=== PATIENT | female | born 1980 ===

== ENCOUNTER 2018-03-21 03:00 | Inpatient (IN) | payer MEDICAID ==
[~2018-03-21] VITALS: Ht 165.1 cm; Wt 93.4 kg
[~2018-03-21 03:00] MED LIST: QUET25TA PO; SERT50TA12 PO
[2018-03-21] MEDS ORDERED: DIVA250T45 PO (03:16)
[2018-03-21 03:31] LABS: BASOPHILS % (AUTO) 0.8 % (0.0-2.0); EOSINOPHILS % (AUTO) 1.5 % (1.0-6.0); HEMATOCRIT 38.8 % (36-46); LYMPHOCYTES # (AUTO) 2.6 K/uL (1.0-4.8); LYMPHOCYTES % (AUTO) 25.9 % (22.0-44.0); MEAN CORPUSCULAR HEMOGLOBIN 28.2 pg (26.0-34.0); MEAN CORPUSCULAR HGB CONC 33.6 G/dL (31.0-37.0); MEAN CORPUSCULAR VOLUME 84 fL (80-100); MONOCYTES # (AUTO) 0.5 K/uL (0.1-1.0); MONOCYTES % (AUTO) 4.9 % (2.0-9.0); NEUTROPHILS # (AUTO) 6.6 K/uL (1.8-7.7); NEUTROPHILS % (AUTO) 66.9 % (40.0-70.0); PLATELET COUNT (AUTO) 303 K/uL (150-450); RED BLOOD CELL COUNT(AUTO) 4.61 MIL/uL (4.00-5.20); RED CELL DISTRIBUTION WIDTH 14.3 % (11.5-14.5)
[2018-03-21 03:43] LABS: ALANINE AMINOTRANSFERASE 24 U/L (12-78); ALBUMIN 3.2 g/dL (3.4-5.0); ALKALINE PHOSPHATASE 103 U/L (46-116); ANION GAP 10 mmol/L (8-16); ASPARTATE AMINOTRANSFERASE 14 U/L (15-37); BILIRUBIN,TOTAL 0.4 mg/dL (0.1-1.0); CALCIUM, TOTAL 8.8 mg/dL (8.8-10.5); CARBON DIOXIDE 27 mmol/L (22-29); CHLORIDE 101 mmol/L (98-107); CREATININE 0.97 mg/dL (0.60-1.30); GLOMERULAR FILTR. RATE CALC > 60 mL/min (>60); GLUCOSE,RANDOM 127 mg/dL (70-110); SODIUM SERUM 138 mmol/L (136-145); TOTAL PROTEIN, SERUM 7.5 g/dL (6.4-8.2); UREA NITROGEN, BLOOD 6 mg/dL (7-18)
[2018-03-21 03:47] LABS: POTASSIUM 2.9 mmol/L (3.5-5.1)
[2018-03-21 03:55] LABS: SALICYLATE 3.3 mg/dL (2.8-20.0)
[2018-03-21 03:58] LABS: ACETAMINOPHEN < 2 mcg/mL (10-30)
[2018-03-21 04:24] LABS: VALPROIC ACID 11 mcg/mL (50-100)
[2018-03-21] MEDS ORDERED: ACETAMINOPHEN 325 MG TABLET PO PRN (04:45)
[2018-03-21] MEDS ORDERED: 0.9% SODIUM CHLORIDE 10 ML SYRINGE IVP PRN ×2 (04:45→08:30)
[2018-03-21] MEDS ORDERED: ONDANSETRON HCL 4 MG/2 ML VIAL IVP PRN ×2 (04:45→08:30)
[2018-03-21 04:54] LABS: AMPHET/METH SCREEN,URINE POSITIVE (NEGATIVE); BARBITURATE SCREEN, URINE NEGATIVE (NEGATIVE); BENZODIAZEPINES SCREEN,URINE NEGATIVE (NEGATIVE); CANNABINOID SCREEN,URINE NEGATIVE (NEGATIVE); COCAINE SCREEN,URINE NEGATIVE (NEGATIVE); METHADONE SCREEN, URINE NEGATIVE (NEGATIVE); OPIATE SCREEN,URINE NEGATIVE (NEGATIVE); PHENCYCLIDINE SCREEN,URINE NEGATIVE (NEGATIVE)
[2018-03-21] MEDS ORDERED: SODIUM CHLORIDE 0.9% 1,000 ML IV ONE (05:10)
[2018-03-21] MEDS: POTASSIUM CHL 10 MEQ/WATER 50 ML IV SCH ×2 (05:13→06:12)
[2018-03-21] MEDS ORDERED: POTASSIUM CHL 10 MEQ/WATER 50 ML IV PRN (08:30)
[2018-03-21] MEDS ORDERED: MAGNESIUM OXIDE 400 MG TABLET PO PRN (08:30)
[2018-03-21] MEDS ORDERED: POTASSIUM CHLORIDE 20 MEQ ER TABLET PO PRN (08:30)
[2018-03-21] MEDS ORDERED: MAGNESIUM SULFATE 2 GM/WATER 50 ML IV PRN (08:30)
[2018-03-21] MEDS ORDERED: MAGNESIUM SULFATE 4 GM/WATER 100 ML IV PRN (08:30)
[2018-03-21] MEDS: QUEtiapine FUMARATE 25 MG TABLET PO SCH (09:00)
[2018-03-21] MEDS: SERTRALINE HCL 50 MG TABLET PO SCH (09:00)
[2018-03-21 09:02] VITALS: BP 130/83
[2018-03-21] MEDS: MAGNESIUM SULFATE 2 GM, MVI, ADULT NO.1 WITH VIT K 10 ML, THIAMINE HCL 100 MG, FOLIC AC... IV SCH ×5 (10:52)
[2018-03-21] MEDS: DOCUSATE SODIUM 100 MG CAPSULE PO SCH ×2 (10:52→20:25)
[2018-03-21] MEDS: PANTOPRAZOLE SODIUM 40 MG/VIAL IVP SCH (10:52)
[2018-03-21 11:09] VITALS: BP 112/64
[2018-03-21 14:38] LABS: MAGNESIUM 2.1 mg/dL (1.80-2.40); POTASSIUM 4.2 mmol/L (3.5-5.1)
[2018-03-21 15:15] VITALS: BP 112/71
[2018-03-21 19:38] VITALS: BP 127/81
[2018-03-21] MEDS: DIVALPROEX SODIUM 250 MG ER TABLET PO SCH ×2 (20:25→21:00)
[2018-03-22] VITALS (7 sets, daily range): BP systolic 123–156; BP diastolic 77–97
[2018-03-22] MEDS: MAGNESIUM SULFATE 2 GM, MVI, ADULT NO.1 WITH VIT K 10 ML, THIAMINE HCL 100 MG, FOLIC AC... IV SCH ×10 (00:31→17:02)
[2018-03-22 04:47] LABS: BASOPHILS % (AUTO) 0.8 % (0.0-2.0); EOSINOPHILS % (AUTO) 2.8 % (1.0-6.0); HEMATOCRIT 36.4 % (36-46); HEMOGLOBIN 12.3 g/dL (12.0-16.0); LYMPHOCYTES # (AUTO) 3.5 K/uL (1.0-4.8); LYMPHOCYTES % (AUTO) 38.2 % (22.0-44.0); MEAN CORPUSCULAR HEMOGLOBIN 28.8 pg (26.0-34.0); MEAN CORPUSCULAR HGB CONC 33.8 G/dL (31.0-37.0); MEAN CORPUSCULAR VOLUME 85 fL (80-100); MONOCYTES # (AUTO) 0.4 K/uL (0.1-1.0); MONOCYTES % (AUTO) 4.5 % (2.0-9.0); NEUTROPHILS % (AUTO) 53.7 % (40.0-70.0); PLATELET COUNT (AUTO) 258 K/uL (150-450); RED BLOOD CELL COUNT(AUTO) 4.27 MIL/uL (4.00-5.20); RED CELL DISTRIBUTION WIDTH 14.3 % (11.5-14.5)
[2018-03-22 05:02] LABS: ANION GAP 4 mmol/L (8-16); CALCIUM, TOTAL 8.1 mg/dL (8.8-10.5); CARBON DIOXIDE 29 mmol/L (22-29); CHLORIDE 109 mmol/L (98-107); CREATININE 0.87 mg/dL (0.60-1.30); GLOMERULAR FILTR. RATE CALC > 60 mL/min (>60); GLUCOSE,RANDOM 86 mg/dL (70-110); POTASSIUM 4.3 mmol/L (3.5-5.1); SODIUM SERUM 142 mmol/L (136-145); UREA NITROGEN, BLOOD 9 mg/dL (7-18); VALPROIC ACID 72 mcg/mL (50-100)
[2018-03-22] MEDS: QUEtiapine FUMARATE 25 MG TABLET PO SCH (07:19)
[2018-03-22] MEDS: SERTRALINE HCL 50 MG TABLET PO SCH (09:07)
[2018-03-22] MEDS: PANTOPRAZOLE SODIUM 40 MG/VIAL IVP SCH (09:07)
[2018-03-22] MEDS: DOCUSATE SODIUM 100 MG CAPSULE PO SCH ×2 (09:07→20:29)
[2018-03-22] MEDS ORDERED: DIVALPROEX SODIUM 500 MG ER TABLET PO SCH (21:00)
[2018-03-23 04:11] VITALS: BP 143/96
[2018-03-23 07:21] VITALS: BP 140/90
[2018-03-23] MEDS: PANTOPRAZOLE SODIUM 40 MG/VIAL IVP SCH (08:23)
[2018-03-23] MEDS: SERTRALINE HCL 50 MG TABLET PO SCH (08:23)
[2018-03-23] MEDS: DOCUSATE SODIUM 100 MG CAPSULE PO SCH ×2 (08:23→20:41)
[2018-03-23 12:00] VITALS: BP 127/73
[2018-03-23 16:03] VITALS: BP 124/75
[2018-03-23 19:34] VITALS: BP 138/80
[2018-03-23] MEDS: SERTRALINE HCL 100 MG TABLET PO SCH (20:41)
[2018-03-24 00:11] VITALS: BP 129/76
[2018-03-24 04:57] VITALS: BP 135/68
[2018-03-24 07:48] VITALS: BP 122/74
[2018-03-24] MEDS: ARIPiprazole 5 MG TABLET PO SCH (08:15)
[2018-03-24] MEDS: PANTOPRAZOLE SODIUM 40 MG/VIAL IVP SCH (08:15)
[2018-03-24] MEDS: DOCUSATE SODIUM 100 MG CAPSULE PO SCH ×2 (08:15→21:08)
[2018-03-24 11:33] VITALS: BP 133/79
[2018-03-24 17:04] VITALS: BP 123/90
[2018-03-24 19:55] VITALS: BP 144/93
[2018-03-24] MEDS: SERTRALINE HCL 100 MG TABLET PO SCH (21:08)
[2018-03-25 00:17] VITALS: BP 137/81
[2018-03-25 05:08] VITALS: BP 138/90
[2018-03-25 05:58] LABS: BASOPHILS % (AUTO) 0.6 % (0.0-2.0); EOSINOPHILS % (AUTO) 3.3 % (1.0-6.0); HEMOGLOBIN 13.2 g/dL (12.0-16.0); LYMPHOCYTES # (AUTO) 2.6 K/uL (1.0-4.8); LYMPHOCYTES % (AUTO) 22.6 % (22.0-44.0); MEAN CORPUSCULAR HEMOGLOBIN 28.1 pg (26.0-34.0); MEAN CORPUSCULAR HGB CONC 32.9 G/dL (31.0-37.0); MEAN CORPUSCULAR VOLUME 85 fL (80-100); MONOCYTES # (AUTO) 0.8 K/uL (0.1-1.0); MONOCYTES % (AUTO) 6.6 % (2.0-9.0); NEUTROPHILS # (AUTO) 7.7 K/uL (1.8-7.7); NEUTROPHILS % (AUTO) 66.9 % (40.0-70.0); PLATELET COUNT (AUTO) 272 K/uL (150-450); RED CELL DISTRIBUTION WIDTH 14.1 % (11.5-14.5)
[2018-03-25 06:13] LABS: ANION GAP 3 mmol/L (8-16); CALCIUM, TOTAL 8.6 mg/dL (8.8-10.5); CARBON DIOXIDE 31 mmol/L (22-29); CHLORIDE 105 mmol/L (98-107); CREATININE 0.76 mg/dL (0.60-1.30); GLOMERULAR FILTR. RATE CALC > 60 mL/min (>60); GLUCOSE,RANDOM 99 mg/dL (70-110); POTASSIUM 3.9 mmol/L (3.5-5.1); SODIUM SERUM 139 mmol/L (136-145); UREA NITROGEN, BLOOD 12 mg/dL (7-18); VALPROIC ACID 9 mcg/mL (50-100)
[2018-03-25 08:14] VITALS: BP 135/86
[2018-03-25 08:23] VITALS: BP 135/86
[2018-03-25] MEDS: ARIPiprazole 5 MG TABLET PO SCH (09:00)
[2018-03-25] MEDS: DOCUSATE SODIUM 100 MG CAPSULE PO SCH (09:00)
[2018-03-25] MEDS: PANTOPRAZOLE SODIUM 40 MG/VIAL IVP SCH (09:01)
[2018-03-25] MEDS ORDERED: ARIP5TAB8 PO (09:21)
== END 2018-03-25 10:50 | disposition home or self-care (01) | DRG 817 ==
LOC: EMS 03:01 → 5S 05:00
PROVIDERS: ADMIT Internal Medicine; ATTEND Internal Medicine
DX: T42.6X2A Poisoning by other antiepileptic and sedative-hypnotic drugs, intentional self-harm, initial encounter (principal); G92 Toxic encephalopathy; F33.2 Major depressive disorder, recurrent severe without psychotic features; F15.10 Other stimulant abuse, uncomplicated; F12.10 Cannabis abuse, uncomplicated; F60.3 Borderline personality disorder; Z91.5 Personal history of self-harm; T51.92XA Toxic effect of unspecified alcohol, intentional self-harm, initial encounter; Y92.89 Other specified places as the place of occurrence of the external cause
CPT/HCPCS: 83735; 84132; 93005; 96361; 96365; 96366; 99285; C9113; G0480; G0481; J3411; J3475; J3480; J3490; J7030